=== PATIENT | female | born 1995 | race Caucasian/White ===

== ENCOUNTER 2016-05-18 02:14 | Emergency (ER) | payer BC ==
[2016-05-18 02:25] VITALS: BP 119/82
[2016-05-18] MEDS ORDERED: Lidocaine 2% VISCOUS* 15 ML UDC SWISH SPIT ONE ×2 (02:42→02:43)
[2016-05-18] MEDS ORDERED: Acetaminophen TAB* 325 MG PO ONE (02:42)
[2016-05-18] MEDS ORDERED: Amoxicillin PO (*) 250 MG CAP PO ONE (02:42)
[2016-05-18] MEDS ORDERED: Amoxicillin/Clavulanate TAB* 875 MG PO ONE (02:58)
--- NOTE | 2016-05-18 04:28 | ED ---
ally Hollis Timothy, scribed for Esequiel Chacko on 05/18/16 at 0238 . Throat Pain/Nasal Congestion - HPI Summary HPI Summary: Yajaira Watson is a 20 yo female presenting to [facility] with 9/10 sore throat for the past week. Pt states she has been up for the past 5 nights secondary to pain. She was seen at [place] with no diagnosis. Pt states the pain is worse tonight. She also notes discharge from her right eye, and some left ear pain. She self-medicated with nyquil at 0200. She denies CP and SOB, as well as abd pain, N/V/D. Her Mx includes pneumonia and strep throat. - History of Current Complaint Chief Complaint: EDThroatPain Time Seen by Provider: 05/18/16 02:38 Hx Obtained From: Patient Onset/Duration: Sudden Onset, Lasting Days, Still Present, Worse Since - today Severity: Moderate Associated Signs And Symptoms: Positive: Hoarseness - Allergies/Home Medications Allergies/Adverse Reactions: Allergies Allergy/AdvReac Type Severity Reaction Status Date / Time Ibuprofen Allergy Rash Verified 02/10/16 22:27 PMH/Surg Hx/FS Hx/Imm Hx Respiratory History: Reports: Hx Pneumonia, Other Respiratory Problems/ Disorders - strep throat Infectious Disease History: No Infectious Disease History: Denies: Traveled Outside the [place] in Last 30 Days - Family History Known Family History: Positive: Cardiac Disease Negative: Hypertension, Diabetes - Social History Alcohol Use: Weekly Alcohol Amount: on weekends Substance Use Type: Reports: None Smoking Status (MU): Never Smoked Tobacco Review of Systems Constitutional: Negative Positive: Drainage - right eye Positive: Sore Throat, Ear Ache - left Cardiovascular: Negative Respiratory: Negative Gastrointestinal: Negative Genitourinary: Negative Musculoskeletal: Negative Skin: Negative Neurological: Negative Psychological: Normal All Other Systems Reviewed And Are Negative: Yes Physical Exam Triage Information Reviewed: Yes Vital Signs On Initial Exam: Initial Vitals Temp Pulse Resp BP Pulse Ox 98.2 F 80 18 119/82 99 05/18/16 02:20 05/18/16 02:20 05/18/16 02:20 05/18/16 02:20 05/18/16 02:20 Vital Signs Reviewed: Yes Appearance: Positive: Well-Appearing, No Pain Distress, Well-Nourished Skin: Positive: Warm, Skin Color Reflects Adequate Perfusion, Dry Head/Face: Positive: Normal Head/Face Inspection Eyes: Positive: EOMI, JOSE, Conjunctiva Inflammed - right ENT: Positive: Pharyngeal erythema - posterior, TMs normal Neck: Positive: Supple, Nontender Respiratory/Lung Sounds: Positive: Clear to Auscultation, Breath Sounds Present Cardiovascular: Positive: RRR, Pulses are Symmetrical in both Upper and Lower Extremities Musculoskeletal: Positive: Normal, Strength/ROM Intact Neurological: Positive: Normal, Sensory/Motor Intact, Alert, Oriented to Person Place, Time Psychiatric: Positive: Normal Diagnostics - Vital Signs Vital Signs Temp Pulse Resp BP Pulse Ox 05/18/16 02:20 98.2 F 80 18 119/82 99 - Laboratory Lab Statement: Any lab studies that have been ordered have been reviewed, and results considered in the medical decision making process. EENT Course/Dx - Course Assessment/Plan: Yajaira watson is a 20 yo female presenting to [facility] with 9/10 sore throat and drainage from her right eye. After clinical examination, she will be discharged home with pharyngitis and appropriate instructions. - Diagnoses Provider Diagnoses: Pharyngitis Discharge - Discharge Plan Condition: Stable Disposition: HOME Patient Education Materials: Pharyngitis (ED) Referrals: [facility] DINA Danielle [Primary Care Provider] - 2 Days Additional Instructions: Please follow up with Dina regarding your visit to the emergency department today. Return to the emergency department with any new or recurring symptoms. The documentation as recorded by the ally montoya Timothy accurately reflects the service I personally performed and the decisions made by , Esequiel Chacko.
== END 2016-05-18 03:11 | disposition home or self-care (01) ==
LOC: ED 02:14
DX: J02.9 Acute pharyngitis, unspecified (principal); H92.02 Otalgia, left ear
CPT/HCPCS: 87651; 99282; A9270-GY